=== PATIENT | male | born 1970 | race Caucasian/White ===

== ENCOUNTER 2017-03-18 08:43 | Emergency (ER) | payer OTHER ==
[~2017-03-18] VITALS: Wt 106.6 kg
[~2017-03-18 08:43] MED LIST: AMOXICILLIN500 MG PO; ANAPROX DS550 MG PO; ATOXIMETIN-B1 CAP; FLEXERIL5 MG PO; LEVOFLOXACIN500 MG PO; LIDEX0.05% T; LISINOPRIL HCTZ1 TAB PO; METFORMIN500 MG PO; MOTRIN800 MG PO; NAPROSYN500 MG PO; NEXIUM20 MG; NORCO 325 MG-101 TAB PO; NORCO 325 MG-51 TAB PO; OMEPRAZOLE40 MG PO; PERCOCET 325 MG1 TA7 PO; PRAVASTATIN SOD20 MG PO; PREVACID30 M1 PO; PREVACID30 M3 PO; TRAMADOL HCL50 MG PO
[2017-03-18] MEDS ORDERED: METFORMIN HCL1000 MG PO (08:56)
[2017-03-18] MEDS ORDERED: LISINOPRIL10 M1 PO (08:57)
[2017-03-18 10:26] LABS: BILIRUBIN NEGATIVE (NEGATIVE); BLOOD NEGATIVE (NEGATIVE); CLARITY CLEAR (CLEAR); COLOR YELLOW (YELLOW); GLUCOSE TRACE (NEGATIVE); KETONE NEGATIVE (NEGATIVE); LEUKO ESTERASE NEGATIVE (NEGATIVE); NITRITE NEGATIVE (NEGATIVE); PH 5.5 (5.0-9.0); PROTEIN NEGATIVE (NEGATIVE); SPECIFIC GRAVITY 1.025 (1.005-1.030); UROBILINOGEN 0.2 E.U./dl (0.2-1.0)
[2017-03-18 10:34] LABS: EPITHELIAL CELLS 0-2; MUCOUS 1+; URINE REFLEX COMMENT NO (NO); WBC 0-2 wbc/hpf (0-5)
[2017-03-18] MEDS ORDERED: NAPROSYN500 MG PO (12:23)
[2017-03-18] MEDS ORDERED: ZYRTEC10 MG PO (12:23)
[2017-03-18] MEDS ORDERED: BACTRIM DS 8001 TA1 PO (12:23)
== END 2017-03-18 12:36 | disposition home or self-care (01) ==
LOC: ED 08:43
PROVIDERS: Nurse Practitioner Family
DX: N43.3 Hydrocele, unspecified (principal); J01.90 Acute sinusitis, unspecified; R30.0 Dysuria; F17.200 Nicotine dependence, unspecified, uncomplicated; Z98.890 Other specified postprocedural states; Z79.899 Other long term (current) drug therapy; Z88.5 Allergy status to narcotic agent

== ENCOUNTER → 2017-11-24 | Outpatient (CLI) | payer OTHER ==
[~2017-11-24] MED LIST changes: +BACTRIM DS 8001 TA1 PO; +LISINOPRIL10 M1 PO; +METFORMIN HCL1000 MG PO; +ZYRTEC10 MG PO
== END | disposition home or self-care (01) ==
LOC: US 11-03 09:00
DX: K76.0 Fatty (change of) liver, not elsewhere classified (principal)

== ENCOUNTER 2018-03-03 12:06 | Inpatient (IN) | payer OTHER ==
[~2018-03-03] VITALS: Ht 175.3 cm; Wt 104.3 kg
[2018-03-03] VITALS (8 sets, daily range): BP systolic 118–167; BP diastolic 69–103
--- NOTE | ~2018-03-03 | CON ---
[place], [place] REPORT OF CONSULTATION NAME: JOSE ENRIQUE TRAN [facility] #: [id number] UNIT #: [id number] ROOM: 511 DOCTOR: EVER CHAVIRA MD BIRTHDATE: [birth year] DOS: 03/03/2018 CHIEF COMPLAINT: Chest pain. HISTORY OF PRESENT ILLNESS: The patient is a 47-year-old man who has had multiple episodes of chest pain over the last several years. He states that he has been seen in the Emergency Room for this in the past, but was told that "nothing is wrong." He has never had a cardiology evaluation and denies ever having a stress test in the past. Today, he was turning off a light switch and injured the back of his hand. He presented to the Emergency Room for evaluation. While he was waiting in the Emergency Room, he suddenly developed a sharp pain in the left side of his chest, which radiated into his left back, left arm and shoulder. The pain was worse with inspiration. He states that after given aspirin, his pain improved, but is still present now. He states when he gets the pain usually does last several hours and is made worse by taking a deep breath, coughing, twisting, etc. The patient denies any previous history of myocardial infarction. He has never had a stroke. He does, however, have a history of cigarette abuse. He has been abstinent for 16 years. He has been documented as having diabetes mellitus for 2 years and hypertension for a few years as well. PAST MEDICAL HISTORY: Includes: 1. Essential hypertension. 2. Type 2 diabetes mellitus, not requiring insulin. 3. Recurrent chest pain, etiology not established. 4. Chronic back and neck pains. 5. History of hepatic steatosis. 6. Hiatal hernia. 7. Remote tobacco abuse. 8. History of back surgery. MEDICATIONS: Prior to admission include cetirizine 10 mg daily, lansoprazole 30 mg daily, lisinopril 10 mg daily, metformin 1000 mg b.i.d., naproxen 500 mg b.i.d., pravastatin 20 mg at bedtime and sulfamethoxazole with trimethoprim b.i.d. ALLERGIES: The patient lists an allergy to MORPHINE. FAMILY HISTORY: The patient's father and mother both had heart disease; however, his father at age 63 from suicide. His mother at age 57 from an overdose. He states that his grandmother had a stroke at age 65. SOCIAL HISTORY: The patient does not drink alcohol or use illicit drugs. He was a smoker, but quit 16 years ago. REVIEW OF SYSTEMS: The patient denies diplopia or loss of vision. He denies lightheadedness or syncope. He denies fevers, chills, sweats or recent weight change. He denies nausea or vomiting. He denies hemoptysis or hematemesis. He denies lightheadedness or syncope. Denies any focal weakness. He does have pain in his hand from an injury that he sustained earlier today. He denies [place], [place] REPORT OF CONSULTATION NAME: JOSE ENRIQUE TRAN UNIT #: [id number] ROOM: [facility] DOCTOR: EVER CHAVIRA MD BIRTHDATE: [birth year] blood in his stools or urine. He denies any peripheral edema or focal weakness. The remainder of the review of systems is negative except as noted above. PHYSICAL EXAMINATION: GENERAL: He is a well-nourished white male who is awake, alert and oriented. VITAL SIGNS: Pulse is 77 and regular, blood pressure 130/80. He weighs 104.3 kg and has a body mass index of 34. HEENT: Normocephalic, atraumatic. Extraocular muscles are intact. Sclerae are clear. Pupils are equal, round and react to light. The oral mucosa is moist. Tongue is midline. NECK: Supple. He has no jugular distention. Carotids are full. He has no bruits. He has no neck or supraclavicular masses and no thyromegaly. LUNGS: Respirations are unlabored. His chest is clear to auscultation and percussion. He has no presacral edema. He does have tenderness along his left rib margins that reproduces pain. CARDIOVASCULAR: His heart has a regular rhythm without murmurs or rubs. He does have an S4 gallop. There is no S3. The PMI is not palpable. He has no precordial heave, lift or thrill. ABDOMEN: Soft and normally active without masses, organomegaly or bruits. EXTREMITIES: Showed no clubbing, cyanosis or edema. He has no palpable cords or Homans sign. Pedal pulses are palpable in the feet bilaterally. IMAGING DATA: I reviewed the electrocardiogram and it shows sinus rhythm. It is a normal tracing. IMPRESSIONS: 1. Probable musculoskeletal chest pain, which is reproduced by palpation, deep breathing, cough, etc. 2. Type 2 diabetes mellitus. 3. Essential hypertension. PLAN: The patient does have multiple risk factors for coronary artery disease and therefore, I think that further evaluation with a stress test is appropriate. If that is low risk, then no other cardiac evaluation is indicated at this time. Ongoing risk factor modification will certainly be appropriate no matter what we find. We will schedule the patient for an exercise stress test in the morning. Despite his back pain, he believes that he can walk on the treadmill, but we will keep him free of caffeine, so that we can do a pharmacologic test if necessary. [facility] and I thank the hospitalist physicians for asking our advice regarding his care. [place], [place] REPORT OF CONSULTATION NAME: JOSE ENRIQUE TRAN [place] UNIT #: [id number] ROOM: [facility] DOCTOR: EVER CHAVIRA MD BIRTHDATE: [birth year] EVER CHAVIRA MD CM:CONSTR:REPORT OF CONSULTATION 170 03/03/18 1928 interface
--- NOTE | ~2018-03-03 | PR ---
[place], [place] PROGRESS NOTE NAME: JOSE ENRIQUE TRAN [facility] #: [id number] UNIT #: [id number] ROOM: 511 DOCTOR: EVER CHAVIRA MD BIRTHDATE: [birth year] DOS: 03/04/2018 CARDIOLOGY PROGRESS NOTE SUBJECTIVE: The patient was seen in the Cardiology Department just prior to his stress test on 03/04/2018. He has had no further chest pain since admission and feels well. Serial cardiac biomarkers have shown no evidence for acute myocardial injury. PHYSICAL EXAMINATION: VITAL SIGNS: Today, his pulse is 58 and regular, blood pressure 136/72. He is afebrile. NECK: Supple. He has no jugular distention. Carotids are full. LUNGS: Respirations are unlabored. His chest is clear to auscultation and percussion. HEART: Has a regular rhythm with an S4 gallop. ABDOMEN: Soft. EXTREMITIES: Showed no edema. LABORATORY DATA: Electrocardiogram this morning is a normal tracing. IMPRESSION: 1. Probable musculoskeletal chest pain reproduced by palpation, deep breathing and cough. 2. Type 2 diabetes mellitus. 3. Essential hypertension. PLAN: The patient does have multiple coronary risk factors and therefore, we will evaluate him further with a stress test. Further recommendations will depend upon the results of his stress test; however, if it is low risk, then we will just encourage a healthy lifestyle, risk factor modification, adequate medical management, etc. We thank the hospitalist physicians for asking our advice regarding the patient's care. [place], [place] PROGRESS NOTE NAME: HARSHADCARMENCITALEANDRAJOSE ENRIQUE [facility] [id number] UNIT #: [id number] ROOM: 511 DOCTOR: EVER CHAVIRA MD BIRTHDATE: [birth year] EVER CHAVIRA MD CM:PNTRANS [id number] EVER CHAVIRA MD 03/04/18 1225 interface
[2018-03-03 13:03] LABS: BASO # 0.1 10*3/uL (0.0-0.1); EOS # 0.2 10*3/uL (0.0-0.4); EOS % 2.6 % (1.0-4.0); LYMPH # 1.7 10*3/uL (1.3-4.4); LYMPH % 20.9 % (27.0-41.0); MEAN CELL VOLUME 82.5 fl (80.0-94.0); MEAN CORPUSCULAR HGB 28.8 pg (27.0-31.0); MEAN CORPUSCULAR HGB CONC 34.9 g/dl (33.0-37.0); MEAN PLATELET VOLUME 10.7 fl (9.6-12.3); MONO # 0.6 10*3/uL (0.1-1.0); MONO % 7.9 % (3.0-9.0); NEUT # 5.5 10*3/uL (2.3-7.9); NEUT % 67.4 % (47.0-73.0); PLATELET COUNT AUTOMATED 267 10*3/uL (130-400); RED BLOOD COUNT 5.21 10*6/uL (4.50-5.90); RED CELL DISTRI WIDTH 11.7 % (0-14.5); WHITE BLOOD COUNT 8.2 10*3/uL (4.8-10.8)
[2018-03-03 13:22] LABS: ALBUMIN 3.5 gm/dl (3.1-4.5); ALKALINE PHOSPHATASE 100 U/L (45-117); BUN 15 mg/dl (7-24); CHLORIDE 102 mmol/L (98-107); CREATININE 1.22 mg/dL (0.70-1.30); POTASSIUM 4.1 mmol/L (3.5-5.1); SGOT/AST 7 IU/L (3-35); SGPT/ALT 29 U/L (12-78); SODIUM 135 mmol/L (136-145); TOTAL PROTEIN 6.7 gm/dL (6.4-8.2)
[2018-03-03 13:23] LABS: TROPONIN I < 0.015 ng/ml (<0.045)
[2018-03-03] MEDS ORDERED: PRAVASTATIN SOD40 MG PO (17:02)
[2018-03-03] MEDS ORDERED: METFORMIN500 MG PO (17:04)
[2018-03-04] VITALS: BP 120/86
[2018-03-04 06:29] LABS: ALBUMIN 3.5 gm/dl (3.1-4.5); ALKALINE PHOSPHATASE 107 U/L (45-117); BUN 12 mg/dl (7-24); CHLORIDE 104 mmol/L (98-107); CHOLESTEROL 204 mg/dL (<200); CREATININE 1.05 mg/dL (0.70-1.30); HDL CHOLESTEROL 44 mg/dl (40-60); LDL CHOLESTEROL 123 mg/dL (9-159); PHOSPHOROUS 3.9 mg/dL (2.5-4.9); SGOT/AST 16 IU/L (3-35); SGPT/ALT 33 U/L (12-78); SODIUM 138 mmol/L (136-145); TOTAL PROTEIN 7.2 gm/dL (6.4-8.2); TRIGLYCERIDES 183 mg/dl (<150); VLDL CHOLESTEROL 37 mg/dL (6-40)
[2018-03-04 06:41] LABS: BASO # 0.1 10*3/uL (0.0-0.1); BASO % 1.3 % (0.0-1.0); EOS # 0.2 10*3/uL (0.0-0.4); EOS % 3.7 % (1.0-4.0); HEMOGLOBIN 16.8 g/dl (14.0-18.0); LYMPH # 1.8 10*3/uL (1.3-4.4); LYMPH % 30.8 % (27.0-41.0); MEAN CELL VOLUME 83.3 fl (80.0-94.0); MEAN CORPUSCULAR HGB 28.6 pg (27.0-31.0); MEAN CORPUSCULAR HGB CONC 34.3 g/dl (33.0-37.0); MEAN PLATELET VOLUME 10.7 fl (9.6-12.3); MONO # 0.6 10*3/uL (0.1-1.0); MONO % 9.7 % (3.0-9.0); NEUT # 3.2 10*3/uL (2.3-7.9); PLATELET COUNT AUTOMATED 278 10*3/uL (130-400); RED BLOOD COUNT 5.88 10*6/uL (4.50-5.90); RED CELL DISTRI WIDTH 11.9 % (0-14.5)
[2018-03-04 06:53] LABS: ACT PARTIAL THROMBO TIME 24.8 SECONDS (20.8-31.5); INTERNATIONAL NORM RATIO 0.9 (2.0-3.5)
[2018-03-04 07:27] LABS: VITAMIN D, 25-HYDROXY 16.6 ng/mL (30-100)
[2018-03-04 08:00] VITALS: BP 136/72
[2018-03-04 13:00] VITALS: BP 132/88
[2018-03-04] MEDS ORDERED: POLYSPORIN OINT15 GM T (14:56)
[2018-03-04] MEDS ORDERED: VITAMIN D-32000 UNI1 PO (14:57)
[2018-03-04 16:00] VITALS: BP 120/81
== END 2018-03-04 16:28 | disposition home or self-care (01) | DRG 313 ==
LOC: ED 12:06 → EDHOLD 14:46 → 5E 14:46
PROVIDERS: Emergency Medicine; Internal Medicine
PROC: 4A02XM4 Measurement of Cardiac Total Activity, External Approach (ICD-10-PCS; principal; 2018-03-04)
DX: R07.89 Other chest pain (principal); E11.65 Type 2 diabetes mellitus with hyperglycemia; K76.0 Fatty (change of) liver, not elsewhere classified; K92.1 Melena; K21.9 Gastro-esophageal reflux disease without esophagitis; E78.2 Mixed hyperlipidemia; G89.29 Other chronic pain; R10.32 Left lower quadrant pain; M54.5 Low back pain; K44.9 Diaphragmatic hernia without obstruction or gangrene; S61.211A Laceration without foreign body of left index finger without damage to nail, initial encounter; I10 Essential (primary) hypertension; M54.2 Cervicalgia; E66.9 Obesity, unspecified; S60.222A Contusion of left hand, initial encounter; R00.2 Palpitations; Z88.6 Allergy status to analgesic agent; Z79.899 Other long term (current) drug therapy; Z82.49 Family history of ischemic heart disease and other diseases of the circulatory system; Z83.3 Family history of diabetes mellitus; Z81.8 Family history of other mental and behavioral disorders; Z84.89 Family history of other specified conditions; Z87.891 Personal history of nicotine dependence

== ENCOUNTER 2020-08-31 12:48 | Emergency (ER) | payer OTHER ==
[~2020-08-31] VITALS: Wt 95.3 kg
[~2020-08-31 12:48] MED LIST changes: +POLYSPORIN OINT15 GM T; +PRAVASTATIN SOD40 MG PO; +VITAMIN D-32000 UNI1 PO
[2020-08-31] MEDS ORDERED: ULTRAM50 MG PO (14:52)
[2020-08-31] MEDS ORDERED: LIDEX 0.05% CRE15 GM T (14:57)
== END 2020-08-31 14:51 | disposition home or self-care (01) ==
LOC: ED 12:48
DX: G43.909 Migraine, unspecified, not intractable, without status migrainosus (principal); E11.9 Type 2 diabetes mellitus without complications; K21.9 Gastro-esophageal reflux disease without esophagitis; I10 Essential (primary) hypertension; R21 Rash and other nonspecific skin eruption; Z88.5 Allergy status to narcotic agent; Z79.899 Other long term (current) drug therapy; Z79.2 Long term (current) use of antibiotics; Z87.891 Personal history of nicotine dependence

== ENCOUNTER 2021-10-31 08:09 | Emergency (ER) | payer OTHER ==
[~2021-10-31] VITALS: Ht 180.3 cm; Wt 95.3 kg
[~2021-10-31 08:09] MED LIST changes: +LIDEX 0.05% CRE15 GM T; +ULTRAM50 MG PO
[2021-10-31] MEDS ORDERED: GLIPIZIDE5 MG PO (08:20)
[2021-10-31] MEDS ORDERED: TYLENOL325 M1 PO (09:55)
[2021-10-31] MEDS ORDERED: CYCLOBENZAPRINE10 MG PO (09:55)
[2021-10-31] MEDS ORDERED: NAPROXEN250 MG PO (09:55)
[2021-10-31] MEDS ORDERED: VOLTAREN ARTHRI20 GM T (09:55)
== END 2021-10-31 10:13 | disposition home or self-care (01) ==
LOC: ED 08:09
DX: M25.512 Pain in left shoulder (principal); M79.10 Myalgia, unspecified site; K21.9 Gastro-esophageal reflux disease without esophagitis; I10 Essential (primary) hypertension; E78.2 Mixed hyperlipidemia; E11.9 Type 2 diabetes mellitus without complications; G43.909 Migraine, unspecified, not intractable, without status migrainosus; Z88.6 Allergy status to analgesic agent; Z79.899 Other long term (current) drug therapy; Z87.891 Personal history of nicotine dependence

== ENCOUNTER 2021-12-12 10:09 | Emergency (ER) | payer OTHER ==
[~2021-12-12] VITALS: Wt 95.3 kg
[~2021-12-12 10:09] MED LIST changes: +CYCLOBENZAPRINE10 MG PO; +GLIPIZIDE5 MG PO; +NAPROXEN250 MG PO; +TYLENOL325 M1 PO; +VOLTAREN ARTHRI20 GM T
[2021-12-12 12:40] LABS: BASO % 0.4 % (0.0-1.0); EOS % 0.4 % (1.0-4.0); HEMATOCRIT 45.5 % (42.0-52.0); LYMPH # 1.2 10*3/uL (1.3-4.4); LYMPH % 10.5 % (27.0-41.0); MEAN CELL VOLUME 81.1 fl (80.0-94.0); MEAN CORPUSCULAR HGB 28.5 pg (27.0-31.0); MEAN CORPUSCULAR HGB CONC 35.2 g/dl (33.0-37.0); MEAN PLATELET VOLUME 10.2 fl (9.6-12.3); MONO # 0.7 10*3/uL (0.1-1.0); NEUT # 9.4 10*3/uL (2.3-7.9); NEUT % 82.2 % (47.0-73.0); PLATELET COUNT AUTOMATED 282 10*3/uL (130-400); RED BLOOD COUNT 5.61 10*6/uL (4.50-5.90); RED CELL DISTRI WIDTH 11.6 % (0-14.5); WHITE BLOOD COUNT 11.4 10*3/uL (4.8-10.8)
[2021-12-12 12:44] LABS: BILIRUBIN Negative (Negative); BLOOD Negative (Negative); CLARITY Clear (Clear); COLOR Yellow (Yellow); GLUCOSE 2+ (Negative); KETONE Trace (Negative); LEUKO ESTERASE Negative (Negative); NITRITE Negative (Negative); PH 7.5 (4.5-8.0); SPECIFIC GRAVITY 1.025 (1.001-1.030)
[2021-12-12 13:05] LABS: ALBUMIN 3.7 gm/dl (3.1-4.5); ALKALINE PHOSPHATASE 100 U/L (45-117); BUN 17 mg/dl (7-24); CHLORIDE 102 mmol/L (98-107); CREATININE 0.88 mg/dL (0.70-1.30); LIPASE 140 U/L (73-393); POTASSIUM 4.1 mmol/L (3.5-5.1); SGOT/AST 15 IU/L (3-35); SODIUM 134 mmol/L (136-145); TOTAL PROTEIN 7.1 gm/dL (6.4-8.2)
[2021-12-12 13:36] LABS: SGPT/ALT 31 U/L (12-78)
[2021-12-12 13:53] LABS: MUCOUS TRACE; RBC 0-2 rbc/hpf (0-2); WBC 0-2 wbc/hpf (0-5)
[2021-12-12] MEDS ORDERED: ZOFRAN4 MG PO (15:27)
== END 2021-12-12 15:29 | disposition home or self-care (01) ==
LOC: ED 10:09
PROVIDERS: Physician Assistant
DX: K52.9 Noninfective gastroenteritis and colitis, unspecified (principal); Z20.822 Contact with and (suspected) exposure to COVID-19; Z88.8 Allergy status to other drugs, medicaments and biological substances; Z79.899 Other long term (current) drug therapy; Z98.890 Other specified postprocedural states; Z87.891 Personal history of nicotine dependence

== ENCOUNTER → 2021-12-21 | Outpatient (CLI) | payer OTHER ==
[~2021-12-21] MED LIST changes: +ZOFRAN4 MG PO
[2021-12-21 11:43] LABS: HEMATOCRIT 48.3 % (42.0-52.0); MEAN CELL VOLUME 83.6 fl (80.0-94.0); MEAN CORPUSCULAR HGB 29.2 pg (27.0-31.0); MEAN PLATELET VOLUME 10.2 fl (9.6-12.3); RED BLOOD COUNT 5.78 10*6/uL (4.50-5.90); RED CELL DISTRI WIDTH 11.8 % (0-14.5)
[2021-12-21 12:03] LABS: BUN 15 mg/dl (7-24); CHLORIDE 105 mmol/L (98-107); CHOLESTEROL 219 mg/dL (<200); POTASSIUM 4.6 mmol/L (3.5-5.1); SGOT/AST 14 IU/L (3-35); SGPT/ALT 34 U/L (12-78); SODIUM 134 mmol/L (136-145)
[2021-12-21 12:11] LABS: ALKALINE PHOSPHATASE 103 U/L (45-117); CREATININE 1.02 mg/dL (0.70-1.30); FREE T4 0.89 ng/dl (0.76-1.46); LDL CHOLESTEROL 136 mg/dL (9-159); TOTAL PROTEIN 7.5 gm/dL (6.4-8.2); TRIGLYCERIDES 145 mg/dl (<150)
== END ==
LOC: LAB 11:09
PROVIDERS: ATTEND Family Medicine
DX: Z12.5 Encounter for screening for malignant neoplasm of prostate (principal); I10 Essential (primary) hypertension; E78.00 Pure hypercholesterolemia, unspecified

== ENCOUNTER → 2022-01-19 | Outpatient (CLI) | payer SELFPAY ==
[~2022-01-19] MED LIST changes: +Carafate1 GM PO; +METFORMIN HYD1000 MG PO; +OZEMPIC0.25 MG/01 SQ; +PANTOPRAZOLE SO20 MG PO
[2022-01-19 18:04] LABS: LIPASE 178 U/L (73-393)
== END | disposition home or self-care (01) ==
LOC: LAB 16:55
PROVIDERS: ATTEND Family Medicine
DX: K85.90 Acute pancreatitis without necrosis or infection, unspecified (principal); R10.9 Unspecified abdominal pain

== ENCOUNTER 2022-01-20 09:42 | Inpatient (IN) | payer SELFPAY ==
[2022-01-20] VITALS (7 sets, daily range): BP systolic 101–136; BP diastolic 76–93
[~2022-01-20] VITALS: Ht 180.3 cm; Wt 98.6 kg
[~2022-01-20 09:42] MED LIST changes: -Carafate1 GM PO; -OZEMPIC0.25 MG/01 SQ; -PANTOPRAZOLE SO20 MG PO
[2022-01-20] MEDS ORDERED: OZEMPIC0.25 MG/01 SQ (10:14)
[2022-01-20] MEDS ORDERED: GLIPIZIDE5 MG PO (10:14)
[2022-01-20] MEDS ORDERED: PRAVASTATIN SOD20 MG PO (10:14)
[2022-01-20] MEDS ORDERED: LISINOPRIL10 M1 PO (10:15)
[2022-01-20 10:43] LABS: BASO # 0.1 10*3/uL (0.0-0.1); BASO % 0.7 % (0.0-1.0); EOS # 0.1 10*3/uL (0.0-0.4); EOS % 0.9 % (1.0-4.0); HEMATOCRIT 46.2 % (42.0-52.0); LYMPH # 1.2 10*3/uL (1.3-4.4); MEAN CELL VOLUME 83.1 fl (80.0-94.0); MEAN CORPUSCULAR HGB 28.6 pg (27.0-31.0); MEAN CORPUSCULAR HGB CONC 34.4 g/dl (33.0-37.0); MEAN PLATELET VOLUME 10.3 fl (9.6-12.3); MONO # 0.5 10*3/uL (0.1-1.0); MONO % 5.6 % (3.0-9.0); NEUT % 79.5 % (47.0-73.0); PLATELET COUNT AUTOMATED 278 10*3/uL (130-400); RED BLOOD COUNT 5.56 10*6/uL (4.50-5.90); RED CELL DISTRI WIDTH 11.9 % (0-14.5); WHITE BLOOD COUNT 8.9 10*3/uL (4.8-10.8)
[2022-01-20 10:59] LABS: ALKALINE PHOSPHATASE 91 U/L (45-117); BUN 17 mg/dl (7-24); CHLORIDE 107 mmol/L (98-107); CREATININE 0.96 mg/dL (0.70-1.30); POTASSIUM 3.8 mmol/L (3.5-5.1); SGOT/AST 7 IU/L (3-35); SGPT/ALT 24 U/L (12-78); SODIUM 136 mmol/L (136-145)
[2022-01-21] VITALS: BP 130/83
[2022-01-21 05:45] LABS: BASO # 0.1 10*3/uL (0.0-0.1); BASO % 1.2 % (0.0-1.0); EOS # 0.2 10*3/uL (0.0-0.4); EOS % 2.8 % (1.0-4.0); HEMATOCRIT 48.1 % (42.0-52.0); LYMPH % 30.8 % (27.0-41.0); MEAN CELL VOLUME 83.1 fl (80.0-94.0); MEAN CORPUSCULAR HGB 28.8 pg (27.0-31.0); MEAN CORPUSCULAR HGB CONC 34.7 g/dl (33.0-37.0); MEAN PLATELET VOLUME 10.6 fl (9.6-12.3); MONO # 0.6 10*3/uL (0.1-1.0); NEUT # 3.6 10*3/uL (2.3-7.9); NEUT % 55.7 % (47.0-73.0); PLATELET COUNT AUTOMATED 300 10*3/uL (130-400); RED BLOOD COUNT 5.79 10*6/uL (4.50-5.90); RED CELL DISTRI WIDTH 12.1 % (0-14.5); WHITE BLOOD COUNT 6.5 10*3/uL (4.8-10.8)
[2022-01-21 08:00] VITALS: BP 101/76; BP 114/74
[2022-01-21 12:00] VITALS: BP 147/92
[2022-01-21] MEDS ORDERED: PANTOPRAZOLE SO20 MG PO (14:57)
[2022-01-21] MEDS ORDERED: Carafate1 GM PO (14:57)
== END 2022-01-21 15:25 | disposition home or self-care (01) | DRG 379 ==
LOC: ED 09:42 → 4E 10:30 → EDHOLD 10:30 → 4E 11:13
PROVIDERS: Student in an Organized Health Care Education/Training Program; ADMIT Internal Medicine; ATTEND Internal Medicine
PROC: 0DB68ZX Excision of Stomach, Via Natural or Artificial Opening Endoscopic, Diagnostic (ICD-10-PCS; principal; 2022-01-20)
PROC: 0DB58ZX Excision of Esophagus, Via Natural or Artificial Opening Endoscopic, Diagnostic (ICD-10-PCS; 2022-01-20)
DX: K29.71 Gastritis, unspecified, with bleeding (principal); K20.91 Esophagitis, unspecified with bleeding; K44.9 Diaphragmatic hernia without obstruction or gangrene; I10 Essential (primary) hypertension; Z83.3 Family history of diabetes mellitus; Z88.5 Allergy status to narcotic agent; Z87.891 Personal history of nicotine dependence

== ENCOUNTER → 2022-08-09 | Outpatient (CLI) | payer MEDICAID ==
[~2022-08-09] MED LIST changes: +Carafate1 GM PO; +OZEMPIC0.25 MG/01 SQ; +PANTOPRAZOLE SO20 MG PO
== END | disposition home or self-care (01) ==
LOC: US 09:01
PROVIDERS: ATTEND Family Medicine
DX: I73.9 Peripheral vascular disease, unspecified (principal)

== ENCOUNTER → 2023-01-06 | Outpatient (CLI) | payer MEDICAID ==
[2023-01-06 11:10] LABS: VITAMIN D, 25-HYDROXY 23.5 ng/mL (30-100)
== END | disposition home or self-care (01) ==
LOC: LAB 09:07
PROVIDERS: ATTEND Family Medicine
DX: I10 Essential (primary) hypertension (principal); M25.50 Pain in unspecified joint; M79.10 Myalgia, unspecified site

== ENCOUNTER → 2023-03-13 | Outpatient (CLI) | payer MEDICAID ==
[2023-03-13 10:36] LABS: BASO # 0.1 10*3/uL (0.0-0.1); BASO % 1.3 % (0.0-1.0); BILIRUBIN Negative (Negative); BLOOD Negative (Negative); CLARITY Clear (Clear); COLOR Yellow (Yellow); EOS # 0.2 10*3/uL (0.0-0.4); EOS % 3.5 % (1.0-4.0); GLUCOSE 3+ (Negative); HEMATOCRIT 48.6 % (42.0-52.0); KETONE Negative (Negative); LEUKO ESTERASE Negative (Negative); LYMPH # 1.7 10*3/uL (1.3-4.4); LYMPH % 27.3 % (27.0-41.0); MEAN CELL VOLUME 79.5 fl (80.0-94.0); MEAN CORPUSCULAR HGB 27.8 pg (27.0-31.0); MEAN PLATELET VOLUME 10.7 fl (9.6-12.3); MONO # 0.6 10*3/uL (0.1-1.0); MONO % 9.3 % (3.0-9.0); NEUT # 3.6 10*3/uL (2.3-7.9); NEUT % 58.1 % (47.0-73.0); NITRITE Negative (Negative); PLATELET COUNT AUTOMATED 282 10*3/uL (130-400); RED BLOOD COUNT 6.11 10*6/uL (4.50-5.90); RED CELL DISTRI WIDTH 11.9 % (0-14.5); RETICULOCYTE % 1.57 % (0.50-2.50); SPECIFIC GRAVITY >= 1.030 (1.001-1.030); UROBILINOGEN 0.2 E.U./dl (0.0-1.0); WHITE BLOOD COUNT 6.2 10*3/uL (4.8-10.8)
[2023-03-13 11:25] LABS: ALKALINE PHOSPHATASE 165 U/L (46-116); BUN 8 mg/dl (9-23); CHLORIDE 101 mmol/L (98-107); CHOLESTEROL 263 mg/dL (<200); GAMMA GLUTAMYL TRANSPEPTIDASE 42 U/L (0-73); LDL CHOLESTEROL 183 mg/dL (9-159); POTASSIUM 3.8 mmol/L (3.4-5.1); SGPT/ALT 36 U/L (10-49); T3 UPTAKE 21.7 % (22.4-36.7); THYROXINE (T4) TOTAL 9.1 ug/dl (4.5-10.9); TOTAL PROTEIN 7.5 gm/dL (6.0-8.0); TRIGLYCERIDES 176 mg/dl (<150); URIC ACID 5.1 mg/dL (3.7-9.2)
[2023-03-13 11:26] LABS: VITAMIN D, 25-HYDROXY 23.6 ng/mL (30-100)
[2023-03-13 11:29] LABS: EPITHELIAL CELLS 0-2
[2023-03-15 13:07] LABS: ANTI-DSDNA ANTIBODIES <1 IU/mL (0-9)
== END | disposition home or self-care (01) ==
LOC: LAB 09:49
PROVIDERS: ATTEND Family Medicine
DX: R06.02 Shortness of breath (principal); R79.89 Other specified abnormal findings of blood chemistry; R53.83 Other fatigue; E78.5 Hyperlipidemia, unspecified; E55.9 Vitamin D deficiency, unspecified

== ENCOUNTER 2023-06-01 11:53 | Emergency (ER) | payer MEDICAID ==
[~2023-06-01] VITALS: Ht 170.1 cm; Wt 99.8 kg
[2023-06-01 12:26] LABS: BASO # 0.1 10*3/uL (0.0-0.1); BASO % 1.6 % (0.0-1.0); EOS # 0.1 10*3/uL (0.0-0.4); EOS % 1.8 % (1.0-4.0); HEMATOCRIT 47.2 % (42.0-52.0); LYMPH # 1.7 10*3/uL (1.3-4.4); LYMPH % 34.1 % (27.0-41.0); MEAN CELL VOLUME 81.7 fl (80.0-94.0); MEAN CORPUSCULAR HGB 28.4 pg (27.0-31.0); MEAN CORPUSCULAR HGB CONC 34.7 g/dl (33.0-37.0); MEAN PLATELET VOLUME 10.2 fl (9.6-12.3); MONO # 0.5 10*3/uL (0.1-1.0); MONO % 10.3 % (3.0-9.0); NEUT # 2.5 10*3/uL (2.3-7.9); PLATELET COUNT AUTOMATED 282 10*3/uL (130-400); RED BLOOD COUNT 5.78 10*6/uL (4.50-5.90); RED CELL DISTRI WIDTH 12.3 % (0-14.5); WHITE BLOOD COUNT 4.9 10*3/uL (4.8-10.8)
[2023-06-01 12:36] LABS: ACT PARTIAL THROMBO TIME 28.2 SECONDS (20.0-32.1)
[2023-06-01 12:51] LABS: ALKALINE PHOSPHATASE 110 U/L (46-116); BUN 16 mg/dl (9-23); CHLORIDE 101 mmol/L (98-107); LIPASE 49 U/L (12-53); POTASSIUM 4.1 mmol/L (3.4-5.1); SGPT/ALT 25 U/L (10-49); TOTAL PROTEIN 7.3 gm/dL (6.0-8.0)
[2023-06-01 13:13] LABS: BILIRUBIN Negative (Negative); BLOOD Negative (Negative); CLARITY Clear (Clear); COLOR Yellow (Yellow); GLUCOSE 2+ (Negative); KETONE Negative (Negative); LEUKO ESTERASE Negative (Negative); NITRITE Negative (Negative); SPECIFIC GRAVITY 1.025 (1.001-1.030); UROBILINOGEN 0.2 E.U./dl (0.0-1.0)
[2023-06-01 13:28] LABS: BACTERIA TRACE; EPITHELIAL CELLS 0-2; WBC 0-2 wbc/hpf (0-5)
== END 2023-06-01 14:36 | disposition home or self-care (01) ==
LOC: ED 11:53
PROVIDERS: Internal Medicine
DX: A08.4 Viral intestinal infection, unspecified (principal); E11.9 Type 2 diabetes mellitus without complications; R20.2 Paresthesia of skin; Z88.5 Allergy status to narcotic agent; Z79.899 Other long term (current) drug therapy; Z98.890 Other specified postprocedural states; Z87.891 Personal history of nicotine dependence

== ENCOUNTER 2023-06-16 17:11 | Emergency (ER) | payer MEDICAID ==
[~2023-06-16] VITALS: Wt 102.1 kg
[2023-06-16 17:38] LABS: BASO # 0.1 10*3/uL (0.0-0.1); EOS % 0.4 % (1.0-4.0); HEMATOCRIT 45.1 % (42.0-52.0); LYMPH # 1.9 10*3/uL (1.3-4.4); LYMPH % 25.5 % (27.0-41.0); MEAN CELL VOLUME 78.6 fl (80.0-94.0); MEAN CORPUSCULAR HGB 28.2 pg (27.0-31.0); MEAN CORPUSCULAR HGB CONC 35.9 g/dl (33.0-37.0); MEAN PLATELET VOLUME 10.7 fl (9.6-12.3); MONO # 0.5 10*3/uL (0.1-1.0); MONO % 7.2 % (3.0-9.0); NEUT # 4.8 10*3/uL (2.3-7.9); NEUT % 65.5 % (47.0-73.0); PLATELET COUNT AUTOMATED 328 10*3/uL (130-400); RED BLOOD COUNT 5.74 10*6/uL (4.50-5.90); WHITE BLOOD COUNT 7.3 10*3/uL (4.8-10.8)
[2023-06-16 17:48] LABS: ACT PARTIAL THROMBO TIME 24.8 SECONDS (20.0-32.1)
[2023-06-16 18:04] LABS: ALKALINE PHOSPHATASE 136 U/L (46-116); BUN 13 mg/dl (9-23); CHLORIDE 104 mmol/L (98-107); POTASSIUM 3.9 mmol/L (3.4-5.1); SGPT/ALT 44 U/L (10-49); TOTAL PROTEIN 7.4 gm/dL (6.0-8.0)
[2023-06-16 19:32] LABS: BILIRUBIN Negative (Negative); BLOOD Negative (Negative); CLARITY Clear (Clear); COLOR Yellow (Yellow); GLUCOSE 3+ (Negative); KETONE 3+ (Negative); LEUKO ESTERASE Negative (Negative); NITRITE Negative (Negative); PH 5.5 (4.5-8.0); SPECIFIC GRAVITY >= 1.030 (1.001-1.030); UROBILINOGEN 0.2 E.U./dl (0.0-1.0)
[2023-06-16 19:43] LABS: MUCOUS 1+; WBC 0-2 wbc/hpf (0-5)
== END 2023-06-16 20:39 | disposition home or self-care (01) ==
LOC: ED 17:11
PROVIDERS: Internal Medicine; Nurse Practitioner Family
DX: K29.70 Gastritis, unspecified, without bleeding (principal); E11.9 Type 2 diabetes mellitus without complications; K21.9 Gastro-esophageal reflux disease without esophagitis; I10 Essential (primary) hypertension; Z88.5 Allergy status to narcotic agent; Z98.890 Other specified postprocedural states; Z87.891 Personal history of nicotine dependence

== ENCOUNTER 2023-07-17 12:48 | Emergency (ER) | payer MEDICAID ==
[~2023-07-17] VITALS: Ht 185.4 cm; Wt 106.6 kg
== END 2023-07-17 13:51 | disposition home or self-care (01) ==
LOC: ED 12:48
DX: S61.012A Laceration without foreign body of left thumb without damage to nail, initial encounter (principal); E11.9 Type 2 diabetes mellitus without complications; K21.9 Gastro-esophageal reflux disease without esophagitis; I10 Essential (primary) hypertension; Z88.5 Allergy status to narcotic agent; Z98.890 Other specified postprocedural states; Z87.891 Personal history of nicotine dependence; W26.0XXA Contact with knife, initial encounter; Y93.89 Activity, other specified; Y92.89 Other specified places as the place of occurrence of the external cause; Y99.8 Other external cause status

== ENCOUNTER → 2023-07-20 | Outpatient (CLI) | payer MEDICAID | END | disposition home or self-care (01) | LOC: RAD 08:54 | PROVIDERS: ATTEND Family Medicine | DX: M47.817 Spondylosis without myelopathy or radiculopathy, lumbosacral region (principal); M41.26 Other idiopathic scoliosis, lumbar region; M54.89 Other dorsalgia; R20.0 Anesthesia of skin; M41.24 Other idiopathic scoliosis, thoracic region; M47.813 Spondylosis without myelopathy or radiculopathy, cervicothoracic region; E11.9 Type 2 diabetes mellitus without complications; V89.2XXD Person injured in unspecified motor-vehicle accident, traffic, subsequent encounter ==

== ENCOUNTER → 2023-08-13 | Outpatient (CLI) | payer MEDICAID ==
[2023-08-13 08:06] LABS: BASO # 0.1 10*3/uL (0.0-0.1); BASO % 0.9 % (0.0-1.0); EOS # 0.3 10*3/uL (0.0-0.4); EOS % 4.1 % (1.0-4.0); LYMPH % 30.4 % (27.0-41.0); MEAN CELL VOLUME 79.1 fl (80.0-94.0); MEAN CORPUSCULAR HGB 28.5 pg (27.0-31.0); MONO # 0.5 10*3/uL (0.1-1.0); NEUT # 3.6 10*3/uL (2.3-7.9); NEUT % 56.3 % (47.0-73.0); PLATELET COUNT AUTOMATED 247 10*3/uL (130-400); RED BLOOD COUNT 5.94 10*6/uL (4.50-5.90); RED CELL DISTRI WIDTH 11.8 % (0-14.5); RETICULOCYTE % 1.72 % (0.50-2.50); WHITE BLOOD COUNT 6.4 10*3/uL (4.8-10.8)
[2023-08-13 08:14] LABS: BILIRUBIN Negative (Negative); BLOOD Negative (Negative); CLARITY Clear (Clear); COLOR Yellow (Yellow); GLUCOSE 3+ (Negative); KETONE Trace (Negative); LEUKO ESTERASE Negative (Negative); NITRITE Negative (Negative); PH 6.5 (4.5-8.0); SPECIFIC GRAVITY >= 1.030 (1.001-1.030)
[2023-08-13 08:39] LABS: ALKALINE PHOSPHATASE 146 U/L (46-116); BUN 10 mg/dl (9-23); CHLORIDE 103 mmol/L (98-107); CHOLESTEROL 244 mg/dL (<200); CPK 140 U/L (34-171); GAMMA GLUTAMYL TRANSPEPTIDASE 47 U/L (0-73); LDL CHOLESTEROL 166 mg/dL (9-159); POTASSIUM 4.2 mmol/L (3.4-5.1); SGPT/ALT 37 U/L (10-49); T3 UPTAKE 23.9 % (22.4-36.7); THYROXINE (T4) TOTAL 8.5 ug/dl (4.5-10.9); TOTAL PROTEIN 6.8 gm/dL (6.0-8.0); TRIGLYCERIDES 196 mg/dl (<150)
[2023-08-13 08:40] LABS: VITAMIN D, 25-HYDROXY 23.7 ng/mL (30-100)
[2023-08-13 08:49] LABS: RBC 0-2 rbc/hpf (0-2); WBC 0-2 wbc/hpf (0-5)
== END | disposition home or self-care (01) ==
LOC: LAB 07:05 → US 07:30
PROVIDERS: ATTEND Family Medicine
DX: N40.0 Benign prostatic hyperplasia without lower urinary tract symptoms (principal); R10.84 Generalized abdominal pain; E55.9 Vitamin D deficiency, unspecified; R79.89 Other specified abnormal findings of blood chemistry; R53.83 Other fatigue; E78.5 Hyperlipidemia, unspecified

== ENCOUNTER → 2023-08-15 | Outpatient (CLI) | payer MEDICAID | END | disposition home or self-care (01) | LOC: CT 09:51 | PROVIDERS: ATTEND Family Medicine | DX: M50.30 Other cervical disc degeneration, unspecified cervical region (principal); M25.78 Osteophyte, vertebrae; J92.9 Pleural plaque without asbestos; J43.9 Emphysema, unspecified; M47.816 Spondylosis without myelopathy or radiculopathy, lumbar region; K76.0 Fatty (change of) liver, not elsewhere classified; M51.27 Other intervertebral disc displacement, lumbosacral region; M48.12 Ankylosing hyperostosis [Forestier], cervical region; M48.02 Spinal stenosis, cervical region; R51.9 Headache, unspecified ==

== ENCOUNTER → 2023-08-24 | Outpatient (CLI) | payer MEDICAID | END | disposition home or self-care (01) | LOC: NM 08-22 07:00 | PROVIDERS: ATTEND Family Medicine | DX: R10.11 Right upper quadrant pain (principal); R10.84 Generalized abdominal pain; R11.0 Nausea ==

== ENCOUNTER → 2023-09-12 | Outpatient (CLI) | payer MEDICAID | END | disposition home or self-care (01) | LOC: CT 09-10 09:00 | PROVIDERS: ATTEND Family Medicine | DX: R93.89 Abnormal findings on diagnostic imaging of other specified body structures (principal); I25.10 Atherosclerotic heart disease of native coronary artery without angina pectoris; K76.0 Fatty (change of) liver, not elsewhere classified; K44.9 Diaphragmatic hernia without obstruction or gangrene ==

== ENCOUNTER 2024-01-28 17:31 | Emergency (ER) | payer MEDICAID ==
[~2024-01-28] VITALS: Ht 180.3 cm; Wt 107.5 kg
[2024-01-28] MEDS ORDERED: ACETAMINOPHEN 325 MG TAB PO ONE (17:45)
[2024-01-28 17:46] LABS: BASO # 0.1 10*3/uL (0.0-0.1); BASO % 0.8 % (0.0-1.0); EOS # 0.2 10*3/uL (0.0-0.4); EOS % 2.4 % (1.0-4.0); HEMATOCRIT 44.6 % (42.0-52.0); LYMPH # 1.7 10*3/uL (1.3-4.4); LYMPH % 21.6 % (27.0-41.0); MEAN CELL VOLUME 81.2 fl (80.0-94.0); MEAN CORPUSCULAR HGB 27.3 pg (27.0-31.0); MEAN CORPUSCULAR HGB CONC 33.6 g/dl (33.0-37.0); MEAN PLATELET VOLUME 10.2 fl (9.6-12.3); MONO # 0.8 10*3/uL (0.1-1.0); MONO % 9.7 % (3.0-9.0); NEUT # 5.1 10*3/uL (2.3-7.9); NEUT % 65.1 % (47.0-73.0); PLATELET COUNT AUTOMATED 259 10*3/uL (130-400); RED BLOOD COUNT 5.49 10*6/uL (4.50-5.90); RED CELL DISTRI WIDTH 12.1 % (0-14.5); WHITE BLOOD COUNT 7.9 10*3/uL (4.8-10.8)
[2024-01-28 18:04] LABS: ALKALINE PHOSPHATASE 105 U/L (46-116); BUN 13 mg/dl (9-23); CHLORIDE 102 mmol/L (98-107); POTASSIUM 3.5 mmol/L (3.4-5.1); SGPT/ALT 35 U/L (5-49); TOTAL PROTEIN 7.5 gm/dL (6.0-8.0)
== END 2024-01-28 20:20 | disposition home or self-care (01) ==
LOC: ED 17:31
PROVIDERS: Physician Assistant Medical
DX: R07.89 Other chest pain (principal); Z20.822 Contact with and (suspected) exposure to COVID-19; I10 Essential (primary) hypertension; E78.5 Hyperlipidemia, unspecified; E11.9 Type 2 diabetes mellitus without complications; K21.9 Gastro-esophageal reflux disease without esophagitis; Z88.5 Allergy status to narcotic agent; Z98.890 Other specified postprocedural states; Z87.891 Personal history of nicotine dependence

== ENCOUNTER → 2024-02-11 | Outpatient (CLI) | payer MEDICAID ==
[2024-02-11 09:25] LABS: BASO # 0.1 10*3/uL (0.0-0.1); BASO % 1.1 % (0.0-1.0); EOS # 0.4 10*3/uL (0.0-0.4); EOS % 5.6 % (1.0-4.0); HEMATOCRIT 45.6 % (42.0-52.0); LYMPH % 27.4 % (27.0-41.0); MEAN CELL VOLUME 83.1 fl (80.0-94.0); MEAN CORPUSCULAR HGB 27.3 pg (27.0-31.0); MEAN CORPUSCULAR HGB CONC 32.9 g/dl (33.0-37.0); MEAN PLATELET VOLUME 10.1 fl (9.6-12.3); MONO # 0.7 10*3/uL (0.1-1.0); MONO % 9.6 % (3.0-9.0); NEUT % 55.9 % (47.0-73.0); PLATELET COUNT AUTOMATED 307 10*3/uL (130-400); RED BLOOD COUNT 5.49 10*6/uL (4.50-5.90); RED CELL DISTRI WIDTH 12.1 % (0-14.5); RETICULOCYTE % 1.72 % (0.50-2.50); WHITE BLOOD COUNT 7.2 10*3/uL (4.8-10.8)
[2024-02-11 09:31] LABS: BILIRUBIN Negative (Negative); BLOOD Negative (Negative); CLARITY Clear (Clear); COLOR Yellow (Yellow); GLUCOSE 3+ (Negative); KETONE Trace (Negative); LEUKO ESTERASE Negative (Negative); NITRITE Negative (Negative); SPECIFIC GRAVITY >= 1.030 (1.001-1.030)
[2024-02-11 09:57] LABS: ALKALINE PHOSPHATASE 112 U/L (46-116); BUN 8 mg/dl (9-23); CHLORIDE 106 mmol/L (98-107); CHOLESTEROL 129 mg/dL (<200); GAMMA GLUTAMYL TRANSPEPTIDASE 28 U/L (0-73); LDL CHOLESTEROL 44 mg/dL (9-159); POTASSIUM 3.9 mmol/L (3.4-5.1); SGPT/ALT 22 U/L (5-49); THYROXINE (T4) TOTAL 7.7 ug/dl (4.5-10.9); TRIGLYCERIDES 193 mg/dl (<150); URIC ACID 4.2 mg/dL (3.7-9.2)
[2024-02-11 10:40] LABS: VITAMIN D, 25-HYDROXY 21.7 ng/mL (30-100)
[2024-02-11 10:57] LABS: MUCOUS 1+; RBC 0-2 rbc/hpf (0-2); WBC 0-2 wbc/hpf (0-5)
[2024-02-12 14:08] LABS: ANTI-DSDNA ANTIBODIES <1 IU/mL (0-9)
== END | disposition home or self-care (01) ==
LOC: LAB 08:59
PROVIDERS: ATTEND Family Medicine
DX: E78.5 Hyperlipidemia, unspecified (principal); E55.9 Vitamin D deficiency, unspecified; R79.89 Other specified abnormal findings of blood chemistry; R53.83 Other fatigue; R74.8 Abnormal levels of other serum enzymes

== ENCOUNTER → 2024-02-15 | Outpatient (CLI) | payer MEDICAID | END | disposition home or self-care (01) | LOC: US 01:44 | PROVIDERS: ATTEND Family Medicine | DX: K76.0 Fatty (change of) liver, not elsewhere classified (principal); R16.1 Splenomegaly, not elsewhere classified; N40.0 Benign prostatic hyperplasia without lower urinary tract symptoms; Z90.49 Acquired absence of other specified parts of digestive tract ==

== ENCOUNTER 2024-03-11 10:39 | Emergency (ER) | payer MEDICAID ==
[~2024-03-11] VITALS: Ht 180.3 cm; Wt 106.6 kg
[2024-03-11] MEDS ORDERED: IBUPROFEN 800 MG TAB PO ONE (11:35)
== END 2024-03-11 13:26 | disposition home or self-care (01) ==
LOC: ED 10:39
DX: S93.402A Sprain of unspecified ligament of left ankle, initial encounter (principal); Z88.5 Allergy status to narcotic agent; Z79.899 Other long term (current) drug therapy; Z98.890 Other specified postprocedural states; Z87.891 Personal history of nicotine dependence; W10.8XXA Fall (on) (from) other stairs and steps, initial encounter; Y93.89 Activity, other specified; Y92.89 Other specified places as the place of occurrence of the external cause; Y99.8 Other external cause status

== ENCOUNTER → 2024-05-14 | Outpatient (CLI) | payer MEDICAID ==
[~2024-05-14] MED LIST changes: +CYMBALTA60 MG PO
[2024-05-14 16:16] LABS: BASO # 0.1 10*3/uL (0.0-0.1); BASO % 0.9 % (0.0-1.0); BILIRUBIN Negative (Negative); BLOOD Negative (Negative); CLARITY Clear (Clear); COLOR Yellow (Yellow); EOS # 0.2 10*3/uL (0.0-0.4); EOS % 2.1 % (1.0-4.0); GLUCOSE 2+ (Negative); HEMATOCRIT 44.5 % (42.0-52.0); KETONE Trace (Negative); LEUKO ESTERASE Negative (Negative); LYMPH # 1.6 10*3/uL (1.3-4.4); LYMPH % 19.9 % (27.0-41.0); MEAN CELL VOLUME 84.3 fl (80.0-94.0); MEAN CORPUSCULAR HGB 28.4 pg (27.0-31.0); MEAN CORPUSCULAR HGB CONC 33.7 g/dl (33.0-37.0); MEAN PLATELET VOLUME 10.5 fl (9.6-12.3); MONO # 0.6 10*3/uL (0.1-1.0); MONO % 8.2 % (3.0-9.0); NEUT # 5.3 10*3/uL (2.3-7.9); NEUT % 68.5 % (47.0-73.0); NITRITE Negative (Negative); PH 5.5 (4.5-8.0); PLATELET COUNT AUTOMATED 323 10*3/uL (130-400); RED BLOOD COUNT 5.28 10*6/uL (4.50-5.90); RED CELL DISTRI WIDTH 12.5 % (0-14.5); RETICULOCYTE % 2.07 % (0.50-2.50); SPECIFIC GRAVITY >= 1.030 (1.001-1.030); WHITE BLOOD COUNT 7.8 10*3/uL (4.8-10.8)
[2024-05-14 16:33] LABS: ACT PARTIAL THROMBO TIME 26.7 SECONDS (20.0-32.1)
[2024-05-14 16:35] LABS: HYALINE CAST 0-2; MUCOUS 1+; WBC 0-2 wbc/hpf (0-5)
[2024-05-14 16:40] LABS: ALKALINE PHOSPHATASE 107 U/L (46-116); BUN 17 mg/dl (9-23); CHLORIDE 109 mmol/L (98-107); CHOLESTEROL 215 mg/dL (<200); GAMMA GLUTAMYL TRANSPEPTIDASE 40 U/L (0-73); LDL CHOLESTEROL 111 mg/dL (9-159); SGPT/ALT 40 U/L (5-49); T3 UPTAKE 30.2 % (22.4-36.7); THYROXINE (T4) TOTAL 7.7 ug/dl (4.5-10.9); TRIGLYCERIDES 264 mg/dl (<150)
[2024-05-14 16:42] LABS: VITAMIN D, 25-HYDROXY 17.3 ng/mL (30-100)
== END | disposition home or self-care (01) ==
LOC: LAB 15:25
PROVIDERS: ATTEND Family Medicine
DX: R53.83 Other fatigue (principal); R79.89 Other specified abnormal findings of blood chemistry; E78.5 Hyperlipidemia, unspecified; E10.9 Type 1 diabetes mellitus without complications

== ENCOUNTER → 2024-05-19 | Outpatient (CLI) | payer MEDICAID ==
[~2024-05-19] MED LIST changes: +DOXYCYCLINE HY100 M3 PO; +XARELTO10 MG PO
== END | disposition home or self-care (01) ==
LOC: RAD 12:09
PROVIDERS: ATTEND Family Medicine
DX: Z01.818 Encounter for other preprocedural examination (principal); R06.02 Shortness of breath

== ENCOUNTER → 2024-05-21 | Day surgery (SDC) | payer MEDICAID ==
[2024-05-16 13:34] VITALS: BP 131/86
[2024-05-21] VITALS (8 sets, daily range): BP systolic 116–134; BP diastolic 78–83
[~2024-05-21] VITALS: Ht 180.3 cm; Wt 106.6 kg
[~2024-05-21] MED LIST changes: +Dexamethasone Sodium Phospha 20 MG/5 ML VIAL IV ONE; +HYDROmorphONE Hydrochloride 0.5 MG/0.5 ML SYRINGE IV PRN; +HYDROmorphONE Hydrochloride 0.5 MG/0.5 ML SYRINGE ONE; +Ketorolac Tromethamine 30 MG/ML VIAL IV ONE; +Lactated Ringer's Solution 1,000 ML IV ONE; +Midazolam Hydrochloride 2 MG/2 ML VIAL IV ONE; +Ondansetron Hydrochloride 4 MG/2 ML VIAL IV ONE; +Ondansetron Hydrochloride 4 MG/2 ML VIAL IV PRN; +PROPOFOL 200 MG/20 ML VIAL IV ONE; +SEVOFLURANE 250 ML BOT INH ONE; +fentaNYL CITRATE 100 MCG/2 ML VIAL IV ONE
== END | disposition home or self-care (01) ==
LOC: SDC 05-16 13:15
PROVIDERS: ATTEND Podiatrist
DX: M62.469 Contracture of muscle, unspecified lower leg (principal); M21.10 Varus deformity, not elsewhere classified, unspecified site; M25.371 Other instability, right ankle; E11.42 Type 2 diabetes mellitus with diabetic polyneuropathy; I10 Essential (primary) hypertension; K21.9 Gastro-esophageal reflux disease without esophagitis; E78.00 Pure hypercholesterolemia, unspecified; F41.9 Anxiety disorder, unspecified; G47.00 Insomnia, unspecified; N40.0 Benign prostatic hyperplasia without lower urinary tract symptoms; K64.0 First degree hemorrhoids; M17.9 Osteoarthritis of knee, unspecified; M16.9 Osteoarthritis of hip, unspecified; M47.812 Spondylosis without myelopathy or radiculopathy, cervical region; M47.816 Spondylosis without myelopathy or radiculopathy, lumbar region; M47.818 Spondylosis without myelopathy or radiculopathy, sacral and sacrococcygeal region

== ENCOUNTER → 2024-07-08 | Outpatient (CLI) | payer MEDICAID ==
[~2024-07-08] MED LIST changes: -Dexamethasone Sodium Phospha 20 MG/5 ML VIAL IV ONE; -HYDROmorphONE Hydrochloride 0.5 MG/0.5 ML SYRINGE IV PRN; -HYDROmorphONE Hydrochloride 0.5 MG/0.5 ML SYRINGE ONE; -Ketorolac Tromethamine 30 MG/ML VIAL IV ONE; -Lactated Ringer's Solution 1,000 ML IV ONE; -Midazolam Hydrochloride 2 MG/2 ML VIAL IV ONE; -Ondansetron Hydrochloride 4 MG/2 ML VIAL IV ONE; -Ondansetron Hydrochloride 4 MG/2 ML VIAL IV PRN; -PROPOFOL 200 MG/20 ML VIAL IV ONE; -SEVOFLURANE 250 ML BOT INH ONE; -fentaNYL CITRATE 100 MCG/2 ML VIAL IV ONE
[2024-07-08 15:26] LABS: HEMATOCRIT 40.5 % (42.0-52.0); MEAN CELL VOLUME 84.4 fl (80.0-94.0); MEAN CORPUSCULAR HGB 27.9 pg (27.0-31.0); MEAN CORPUSCULAR HGB CONC 33.1 g/dl (33.0-37.0); MEAN PLATELET VOLUME 10.2 fl (9.6-12.3); PLATELET COUNT AUTOMATED 277 10*3/uL (130-400); RED CELL DISTRI WIDTH 12.1 % (0-14.5); RETICULOCYTE % 1.55 % (0.50-2.50); WHITE BLOOD COUNT 10.5 10*3/uL (4.8-10.8)
[2024-07-08 15:27] LABS: BILIRUBIN Negative (Negative); BLOOD Negative (Negative); CLARITY Clear (Clear); COLOR Yellow (Yellow); GLUCOSE Negative (Negative); KETONE Trace (Negative); LEUKO ESTERASE Negative (Negative); NITRITE Negative (Negative); PH 5.5 (4.5-8.0); UROBILINOGEN 0.2 E.U./dl (0.0-1.0)
[2024-07-08 16:05] LABS: RBC 0-2 rbc/hpf (0-2); WBC 0-2 wbc/hpf (0-5)
[2024-07-08 16:11] LABS: ALKALINE PHOSPHATASE 108 U/L (46-116); BUN 18 mg/dl (9-23); CHLORIDE 105 mmol/L (98-107); CHOLESTEROL 133 mg/dL (<200); GAMMA GLUTAMYL TRANSPEPTIDASE 26 U/L (0-73); LDL CHOLESTEROL 70 mg/dL (9-159); POTASSIUM 3.8 mmol/L (3.4-5.1); SGPT/ALT 19 U/L (5-49); T3 UPTAKE 33.6 % (22.4-36.7); THYROXINE (T4) TOTAL 5.4 ug/dl (4.5-10.9); TOTAL PROTEIN 6.4 gm/dL (6.0-8.0); TRIGLYCERIDES 85 mg/dl (<150); URIC ACID 4.2 mg/dL (3.7-9.2)
[2024-07-08 16:27] LABS: BASOPHILS 3 % (0-1); TOTAL CELLS COUNTED 100 #CELLS
[2024-07-08 16:28] LABS: PLATELET SUFFICIENCY NORMAL (NORMAL)
[2024-07-09 06:09] LABS: HBSAG Negative (Negative); HEP B CORE AB, IGM Negative (Negative); HEPATITIS C ANTIBODY Non Reactive (Non Reactive)
[2024-07-09 14:08] LABS: ANTI-DSDNA ANTIBODIES <1 IU/mL (0-9)
[2024-07-09 15:07] LABS: A/G RATIO 1.3 (0.7-1.7); ALBUMIN 3.4 g/dL (2.9-4.4); ALPHA-1-GLOBULIN 0.2 g/dL (0.0-0.4); ALPHA-2-GLOBULIN 0.8 g/dL (0.4-1.0); GAMMA GLOBULIN 0.7 g/dL (0.4-1.8); GLOBULIN, TOTAL 2.6 g/dL (2.2-3.9)
== END | disposition home or self-care (01) ==
LOC: LAB 15:02
PROVIDERS: ATTEND Family Medicine
DX: E11.9 Type 2 diabetes mellitus without complications (principal); R53.83 Other fatigue; R79.89 Other specified abnormal findings of blood chemistry; E78.5 Hyperlipidemia, unspecified; E55.9 Vitamin D deficiency, unspecified

== ENCOUNTER → 2024-07-09 | Outpatient (CLI) | payer MEDICAID ==
[~2024-07-09] MED LIST changes: +IOHEXOL 300 MG/ML 100 ML VIAL IV ONE
== END | disposition home or self-care (01) ==
LOC: CT 01:27
PROVIDERS: ATTEND Family Medicine
DX: R51.9 Headache, unspecified (principal)

== ENCOUNTER 2025-03-03 15:04 | Inpatient (IN) | payer MEDICAID ==
[~2025-03-03] VITALS: Ht 180.3 cm; Wt 98.0 kg
[~2025-03-03 15:04] MED LIST changes: -IOHEXOL 300 MG/ML 100 ML VIAL IV ONE
[2025-03-03 15:12] VITALS: BP 157/90
[2025-03-03 15:40] LABS: BASO # 0.1 10*3/uL (0.0-0.1); BASO % 0.8 % (0.0-1.0); EOS % 0.4 % (1.0-4.0); HEMATOCRIT 35.5 % (42.0-52.0); MEAN CELL VOLUME 70.4 fl (80.0-94.0); MEAN CORPUSCULAR HGB 22.2 pg (27.0-31.0); MEAN CORPUSCULAR HGB CONC 31.5 g/dl (33.0-37.0); MEAN PLATELET VOLUME 9.9 fl (9.6-12.3); MONO # 0.5 10*3/uL (0.1-1.0); MONO % 6.7 % (3.0-9.0); NEUT # 6.1 10*3/uL (2.3-7.9); PLATELET COUNT AUTOMATED 391 10*3/uL (130-400); RED BLOOD COUNT 5.04 10*6/uL (4.50-5.90); RED CELL DISTRI WIDTH 14.2 % (0-14.5); WHITE BLOOD COUNT 7.9 10*3/uL (4.8-10.8)
[2025-03-03 15:58] LABS: BILIRUBIN Negative (Negative); BLOOD Negative (Negative); CLARITY Clear (Clear); COLOR Yellow (Yellow); GLUCOSE 3+ (Negative); KETONE 1+ (Negative); LEUKO ESTERASE Negative (Negative); NITRITE Negative (Negative); SPECIFIC GRAVITY >= 1.030 (1.001-1.030); UROBILINOGEN 0.2 E.U./dl (0.0-1.0)
[2025-03-03 16:11] LABS: ALKALINE PHOSPHATASE 131 U/L (46-116); BUN 16 mg/dl (9-23); CHLORIDE 99 mmol/L (98-107); LIPASE 50 U/L (12-53); POTASSIUM 3.8 mmol/L (3.4-5.1); SGPT/ALT 32 U/L (5-49); TOTAL PROTEIN 7.3 gm/dL (6.0-8.0)
[2025-03-03 16:21] LABS: WBC 0-2 wbc/hpf (0-5)
[2025-03-03] MEDS ORDERED: INSULIN REGULAR, HUMAN 1 UNIT/0.01 ML IV ONE (16:30)
[2025-03-03] MEDS ORDERED: Ondansetron Hydrochloride 4 MG/2 ML VIAL IV PRN (16:55)
[2025-03-03] MEDS ORDERED: ACETAMINOPHEN 325 MG TAB PO PRN (16:55)
[2025-03-03] MEDS ORDERED: ACETAMINOPHEN 650 MG SUPP R PRN (16:55)
[2025-03-03] MEDS ORDERED: DEXTROSE 50% 25 GM/50 ML VIAL IV PRN (17:00)
[2025-03-03] MEDS ORDERED: POTASSIUM CHLORIDE 20 MEQ TAB PO PRN (17:00)
[2025-03-03] MEDS ORDERED: POTASSIUM CHLORIDE 20 MEQ/100 ML BAG IV PRN (17:00)
[2025-03-03] MEDS ORDERED: INSULIN REGULAR IN 0.9 % NACL 100 ML IV SCH (17:00)
[2025-03-03] MEDS ORDERED: SODIUM CHLORIDE 0.9% 1,000 ML IV ONE ×2 (17:20→19:32)
[2025-03-03 18:04] LABS: BUN 16 mg/dl (9-23); CHLORIDE 104 mmol/L (98-107); POTASSIUM 3.3 mmol/L (3.4-5.1)
[2025-03-03] MEDS ORDERED: LANTUS SOL100 UNIT/1 SC (18:11)
[2025-03-03] MEDS ORDERED: SODIUM CHLORIDE 0.9% 1,000 ML IV SCH (18:55)
[2025-03-03 19:23] VITALS: BP 127/72
[2025-03-03 20:30] VITALS: BP 148/95
[2025-03-03] MEDS ORDERED: DEXTROSE 5% 1,000 ML IV SCH (21:30)
[2025-03-03] MEDS ORDERED: DEXTROSE 5% SALINE 0.45% 1,000 ML IV SCH (21:40)
[2025-03-03 22:47] LABS: BUN 12 mg/dl (9-23); CHLORIDE 108 mmol/L (98-107); POTASSIUM 3.9 mmol/L (3.4-5.1)
[2025-03-04] VITALS: BP 111/58
[2025-03-04] MEDS ORDERED: Insulin Glargine, Recombinan 1 UNIT/0.01 ML SC ONE (00:05)
[2025-03-04 02:43] LABS: BUN 14 mg/dl (9-23); CHLORIDE 107 mmol/L (98-107); POTASSIUM 3.7 mmol/L (3.4-5.1)
[2025-03-04] MEDS ORDERED: Acetaminophen/Hydrocodone 5 MG/325 MG TABLET PO ONE (03:15)
[2025-03-04 04:37] LABS: BASO # 0.1 10*3/uL (0.0-0.1); BASO % 1.3 % (0.0-1.0); EOS # 0.2 10*3/uL (0.0-0.4); EOS % 2.7 % (1.0-4.0); HEMATOCRIT 33.5 % (42.0-52.0); MEAN CELL VOLUME 71.9 fl (80.0-94.0); MEAN CORPUSCULAR HGB 21.7 pg (27.0-31.0); MEAN CORPUSCULAR HGB CONC 30.1 g/dl (33.0-37.0); MEAN PLATELET VOLUME 10.3 fl (9.6-12.3); MONO # 0.7 10*3/uL (0.1-1.0); MONO % 10.7 % (3.0-9.0); NEUT # 3.1 10*3/uL (2.3-7.9); NEUT % 49.6 % (47.0-73.0); PLATELET COUNT AUTOMATED 366 10*3/uL (130-400); RED BLOOD COUNT 4.66 10*6/uL (4.50-5.90); RED CELL DISTRI WIDTH 14.2 % (0-14.5); WHITE BLOOD COUNT 6.3 10*3/uL (4.8-10.8)
[2025-03-04 05:32] LABS: ALKALINE PHOSPHATASE 106 U/L (46-116); BUN 14 mg/dl (9-23); CHLORIDE 106 mmol/L (98-107); POTASSIUM 3.7 mmol/L (3.4-5.1); SGPT/ALT 29 U/L (5-49)
[2025-03-04] MEDS ORDERED: DEXTROSE 10 % IN WATER 250 ML IV PRN (07:20)
[2025-03-04] MEDS ORDERED: INSULIN LISPRO 1 UNIT/0.01 ML SQ SCH ×2 (07:30)
[2025-03-04 08:00] VITALS: BP 154/100
[2025-03-04] MEDS ORDERED: Ketorolac Tromethamine 15 MG/ML VIAL IM ONE (08:20)
[2025-03-04] MEDS ORDERED: LIPITOR40 MG PO (08:35)
[2025-03-04] MEDS ORDERED: NEURONTIN300 MG PO (08:36)
[2025-03-04] MEDS ORDERED: GEMFIBROZIL600 MG PO (08:37)
[2025-03-04] MEDS ORDERED: GLIMEPIRIDE4 M1 PO (08:38)
[2025-03-04] MEDS ORDERED: VISTARIL25 MG PO (08:39)
[2025-03-04] MEDS ORDERED: PRILOSEC20 M1 PO (08:40)
[2025-03-04] MEDS ORDERED: LOSARTAN POTASS25 M1 PO (08:40)
[2025-03-04] MEDS ORDERED: GEMFIBROZIL 600 MG TAB PO SCH (10:00)
[2025-03-04] MEDS ORDERED: Enoxaparin Sodium 40 MG/0.4 ML SYR SC SCH (10:00)
[2025-03-04] MEDS ORDERED: Losartan Potassium 25 MG TAB PO SCH (10:00)
[2025-03-04] MEDS ORDERED: GABAPENTIN 300 MG CAP PO SCH (10:00)
[2025-03-04] MEDS ORDERED: hydrOXYzine pamoate 25 MG CAP PO SCH (10:00)
[2025-03-04] MEDS ORDERED: ATORVASTATIN CALCIUM 40 MG TABLET PO SCH (10:00)
[2025-03-04] MEDS ORDERED: OMEPRAZOLE 20 MG CAP PO SCH (10:00)
[2025-03-04] MEDS ORDERED: SUCRALFATE 1 GM TAB PO SCH (11:30)
== END 2025-03-04 12:55 | disposition home or self-care (01) | DRG 420 ==
LOC: ED 15:04 → ICCU 16:41 → EDHOLD 16:41 → ICCU 19:22
PROVIDERS: Internal Medicine; Student in an Organized Health Care Education/Training Program; ADMIT Internal Medicine; ATTEND Internal Medicine
DX: E11.10 Type 2 diabetes mellitus with ketoacidosis without coma (principal); D50.9 Iron deficiency anemia, unspecified; I10 Essential (primary) hypertension; K21.9 Gastro-esophageal reflux disease without esophagitis; E78.2 Mixed hyperlipidemia; M54.2 Cervicalgia; M54.50 Low back pain, unspecified; G43.909 Migraine, unspecified, not intractable, without status migrainosus; G89.29 Other chronic pain; Z88.5 Allergy status to narcotic agent; Z79.899 Other long term (current) drug therapy

== ENCOUNTER 2025-03-26 16:03 | Emergency (ER) | payer MEDICAID ==
[~2025-03-26] VITALS: Ht 180.3 cm; Wt 113.4 kg
[~2025-03-26 16:03] MED LIST changes: +GEMFIBROZIL600 MG PO; +GLIMEPIRIDE4 M1 PO; +LANTUS SOL100 UNIT/1 SC; +LIPITOR40 MG PO; +LOSARTAN POTASS25 M1 PO; +NEURONTIN300 MG PO; +PRILOSEC20 M1 PO; +VISTARIL25 MG PO
[2025-03-26] MEDS ORDERED: diphenhydrAMINE hydrochloride 50 MG/ML VIAL IV ONE (16:10)
[2025-03-26] MEDS ORDERED: Metoclopramide Hydrochloride 10 MG/2 ML VIAL IV ONE (16:10)
[2025-03-26] MEDS ORDERED: Albuterol Sulfate 2.5 MG/3 ML VIAL NEB ONE (16:25)
[2025-03-26 16:27] LABS: BASO # 0.1 10*3/uL (0.0-0.1); BASO % 1.3 % (0.0-1.0); EOS # 0.3 10*3/uL (0.0-0.4); HEMATOCRIT 33.7 % (42.0-52.0); MEAN CELL VOLUME 71.5 fl (80.0-94.0); MEAN CORPUSCULAR HGB CONC 29.4 g/dl (33.0-37.0); MEAN PLATELET VOLUME 10.5 fl (9.6-12.3); MONO # 0.7 10*3/uL (0.1-1.0); MONO % 9.7 % (3.0-9.0); NEUT # 3.8 10*3/uL (2.3-7.9); NEUT % 53.2 % (47.0-73.0); PLATELET COUNT AUTOMATED 435 10*3/uL (130-400); RED BLOOD COUNT 4.71 10*6/uL (4.50-5.90); WHITE BLOOD COUNT 7.2 10*3/uL (4.8-10.8)
[2025-03-26 16:46] LABS: BUN 29 mg/dl (9-23); CHLORIDE 106 mmol/L (98-107); POTASSIUM 4.2 mmol/L (3.4-5.1)
[2025-03-26] MEDS ORDERED: Ondansetron4 MG PO (17:10)
== END 2025-03-26 17:19 | disposition home or self-care (01) ==
LOC: ED 16:03
PROVIDERS: Emergency Medicine
DX: R06.02 Shortness of breath (principal); R11.2 Nausea with vomiting, unspecified; I10 Essential (primary) hypertension; E11.9 Type 2 diabetes mellitus without complications; K21.9 Gastro-esophageal reflux disease without esophagitis; F32.A Depression, unspecified; F41.9 Anxiety disorder, unspecified; F17.210 Nicotine dependence, cigarettes, uncomplicated; Z79.4 Long term (current) use of insulin; Z79.899 Other long term (current) drug therapy; Z88.5 Allergy status to narcotic agent; Z98.890 Other specified postprocedural states

== ENCOUNTER → 2025-04-01 | Outpatient (CLI) | payer MEDICAID ==
[~2025-04-01] MED LIST changes: +Ondansetron4 MG PO
[2025-04-01 09:21] LABS: BASO % 0.6 % (0.0-1.0); EOS # 0.2 10*3/uL (0.0-0.4); EOS % 3.5 % (1.0-4.0); HEMATOCRIT 31.7 % (42.0-52.0); MEAN CELL VOLUME 71.2 fl (80.0-94.0); MEAN CORPUSCULAR HGB 20.9 pg (27.0-31.0); MEAN CORPUSCULAR HGB CONC 29.3 g/dl (33.0-37.0); MEAN PLATELET VOLUME 10.4 fl (9.6-12.3); MONO # 0.7 10*3/uL (0.1-1.0); MONO % 9.8 % (3.0-9.0); NEUT # 4.4 10*3/uL (2.3-7.9); NEUT % 66.6 % (47.0-73.0); PLATELET COUNT AUTOMATED 413 10*3/uL (130-400); RED BLOOD COUNT 4.45 10*6/uL (4.50-5.90); RED CELL DISTRI WIDTH 15.4 % (0-14.5); RETICULOCYTE % 1.57 % (0.50-2.50); WHITE BLOOD COUNT 6.6 10*3/uL (4.8-10.8)
[2025-04-01 09:24] LABS: BILIRUBIN Negative (Negative); BLOOD Negative (Negative); CLARITY Clear (Clear); COLOR Yellow (Yellow); GLUCOSE 3+ (Negative); KETONE Trace (Negative); LEUKO ESTERASE Negative (Negative); NITRITE Negative (Negative); PH 5.5 (4.5-8.0); SPECIFIC GRAVITY >= 1.030 (1.001-1.030); UROBILINOGEN 0.2 E.U./dl (0.0-1.0)
[2025-04-01 09:51] LABS: VITAMIN D, 25-HYDROXY 29.6 ng/mL (30-100)
[2025-04-01 09:52] LABS: ALKALINE PHOSPHATASE 93 U/L (46-116); BUN 17 mg/dl (9-23); CHLORIDE 103 mmol/L (98-107); CHOLESTEROL 167 mg/dL (<200); GAMMA GLUTAMYL TRANSPEPTIDASE 18 U/L (0-73); LDL CHOLESTEROL 68 mg/dL (9-159); POTASSIUM 3.6 mmol/L (3.4-5.1); SGPT/ALT 13 U/L (5-49); T3 UPTAKE 29.4 % (22.4-36.7); THYROXINE (T4) TOTAL 5.8 ug/dl (4.5-10.9); TOTAL PROTEIN 6.8 gm/dL (6.0-8.0); TRIGLYCERIDES 300 mg/dl (<150); URIC ACID 4.3 mg/dL (3.7-9.2)
[2025-04-01 10:46] LABS: WBC 0-2 wbc/hpf (0-5)
[2025-04-01 10:47] LABS: RBC 0-2 rbc/hpf (0-2)
[2025-04-02 09:07] LABS: ANTI-DSDNA ANTIBODIES <1 IU/mL (0-9)
== END | disposition home or self-care (01) ==
LOC: LAB 08:40
PROVIDERS: ATTEND Family Medicine
DX: E78.5 Hyperlipidemia, unspecified (principal); E10.9 Type 1 diabetes mellitus without complications; E55.9 Vitamin D deficiency, unspecified; R79.89 Other specified abnormal findings of blood chemistry; R53.83 Other fatigue

== ENCOUNTER 2025-06-01 16:20 | Emergency (ER) | payer MEDICAID ==
[~2025-06-01] VITALS: Wt 113.4 kg
[2025-06-01 16:49] LABS: BASO # 0.1 10*3/uL (0.0-0.1); BASO % 1.4 % (0.0-1.0); EOS # 0.3 10*3/uL (0.0-0.4); EOS % 3.9 % (1.0-4.0); MEAN CELL VOLUME 71.8 fl (80.0-94.0); MEAN CORPUSCULAR HGB 21.6 pg (27.0-31.0); MEAN PLATELET VOLUME 9.8 fl (9.6-12.3); MONO # 0.8 10*3/uL (0.1-1.0); MONO % 12.6 % (3.0-9.0); NEUT # 3.6 10*3/uL (2.3-7.9); NEUT % 56.2 % (47.0-73.0); NUCLEATED RED BLOOD CELL 0.0 % (0.0-0.0); NUCLEATED RED BLOOD CELL 0.0 10*3/uL (0.0-0.0); PLATELET COUNT AUTOMATED 367 10*3/uL (130-400); RED CELL DISTRI WIDTH 20.8 % (0-14.5)
[2025-06-01] MEDS ORDERED: AMITRIPTYLINE150 M1 PO (16:58)
[2025-06-01] MEDS ORDERED: PROPRANOLOL HY120 MG PO (17:00)
[2025-06-01] MEDS ORDERED: DULOXETINE HCL30 MG PO (17:00)
[2025-06-01 17:01] LABS: ACT PARTIAL THROMBO TIME 24.5 SECONDS (20.0-32.1)
[2025-06-01] MEDS ORDERED: FEROSUL325 M1 PO (17:01)
[2025-06-01 17:08] LABS: BUN 10 mg/dl (9-23); ETHYL ALCOHOL 3.6 mg/dl (<3)
[2025-06-01 19:08] LABS: URINE AMPHETAMINES Negative (1000ng/ml); URINE BARBITURATES Negative (200ng/ml); URINE BENZODIAZEPINES Negative (200ng/ml); URINE CANNABINOIDS (THC) Positive (50ng/ml); URINE COCAINE Negative (300ng/ml); URINE METHADONE Negative (300ng/ml); URINE OPIATES Negative (300ng/ml); URINE PHENCYCLIDINE Negative (25ng/ml)
== END 2025-06-01 19:09 | disposition home or self-care (01) ==
LOC: ED 16:20
PROVIDERS: Internal Medicine
DX: R07.89 Other chest pain (principal); E11.9 Type 2 diabetes mellitus without complications; F12.90 Cannabis use, unspecified, uncomplicated; Z87.891 Personal history of nicotine dependence; Z98.890 Other specified postprocedural states; Z88.5 Allergy status to narcotic agent; Z79.4 Long term (current) use of insulin; Z79.84 Long term (current) use of oral hypoglycemic drugs; Z79.899 Other long term (current) drug therapy

== ENCOUNTER → 2025-10-13 | Outpatient (CLI) | payer MEDICAID ==
[~2025-10-13] MED LIST changes: +AMITRIPTYLINE150 M1 PO; +DULOXETINE HCL30 MG PO; +FEROSUL325 M1 PO; +PROPRANOLOL HY120 MG PO
[2025-10-13 10:26] LABS: BASO # 0.1 10*3/uL (0.0-0.1); BASO % 1.4 % (0.0-1.0); EOS # 0.6 10*3/uL (0.0-0.4); EOS % 9.5 % (1.0-4.0); MEAN CELL VOLUME 63.6 fl (80.0-94.0); MEAN CORPUSCULAR HGB 18.2 pg (27.0-31.0); MEAN PLATELET VOLUME 9.8 fl (9.6-12.3); MONO # 0.6 10*3/uL (0.1-1.0); MONO % 9.8 % (3.0-9.0); NEUT # 3.8 10*3/uL (2.3-7.9); NEUT % 58.4 % (47.0-73.0); NUCLEATED RED BLOOD CELL 0.0 % (0.0-0.0); NUCLEATED RED BLOOD CELL 0.0 10*3/uL (0.0-0.0); PLATELET COUNT AUTOMATED 387 10*3/uL (130-400); RED CELL DISTRI WIDTH 17.3 % (0-14.5); RETICULOCYTE % 1.92 % (0.50-2.50)
[2025-10-13 10:32] LABS: BILIRUBIN Negative (Negative); BLOOD Negative (Negative); CLARITY Clear (Clear); COLOR Yellow (Yellow); KETONE Trace (Negative); LEUKO ESTERASE Negative (Negative); NITRITE Negative (Negative); PH 5.5 (4.5-8.0); SPECIFIC GRAVITY >= 1.030 (1.001-1.030); UROBILINOGEN 0.2 E.U./dl (0.0-1.0)
[2025-10-13 10:55] LABS: BUN 16 mg/dl (9-23); GAMMA GLUTAMYL TRANSFERASE 25 U/L (0-73); LDL CHOLESTEROL 85 mg/dL (9-159); SGPT/ALT 14 U/L (5-49)
[2025-10-13 11:16] LABS: MUCOUS TRACE
[2025-10-13 11:17] LABS: BACTERIA TRACE; RBC 0-2 rbc/hpf (0-2); WBC 0-2 wbc/hpf (0-5)
[2025-10-13 11:54] LABS: VITAMIN D, 25-HYDROXY 28.2 ng/mL (30-100)
== END | disposition home or self-care (01) ==
LOC: LAB 09:37
PROVIDERS: ATTEND Family Medicine
DX: R79.89 Other specified abnormal findings of blood chemistry (principal); E11.9 Type 2 diabetes mellitus without complications; E78.5 Hyperlipidemia, unspecified; R53.83 Other fatigue